=== PATIENT | male | born 2000 | race Caucasian/White ===

== ENCOUNTER 2024-04-12 09:44 | Emergency (ER) | payer MEDICAID, OTHER ==
[~2024-04-12] VITALS: Ht 167.6 cm; Wt 88.7 kg
[2024-04-12] MEDS: ACETAMINOPHEN 500 MG TAB PO ONE (10:49)
[2024-04-12 18:24] VITALS: BP 117/60; TEMP 97.9; O2SAT 99
== END 2024-04-12 18:44 | disposition home or self-care (01) ==
LOC: M ED 09:44
DX: S06.0XAA Concussion with loss of consciousness status unknown, initial encounter (principal); V49.40XA Driver injured in collision with unspecified motor vehicles in traffic accident, initial encounter; Y92.9 Unspecified place or not applicable; Y93.9 Activity, unspecified; Y99.9 Unspecified external cause status; Z91.89 Other specified personal risk factors, not elsewhere classified

== ENCOUNTER 2025-01-18 08:31 | Emergency (ER) | payer OTHER ==
[~2025-01-18] VITALS: Ht 167.6 cm; Wt 95.2 kg
[2025-01-18 08:35] VITALS: BP 148/67; TEMP 98; O2SAT 99
== END 2025-01-18 12:11 | disposition home or self-care (01) ==
LOC: M ED 08:31
DX: S89.91XA Unspecified injury of right lower leg, initial encounter (principal); X58.XXXA Exposure to other specified factors, initial encounter; Y93.66 Activity, soccer; Y92.89 Other specified places as the place of occurrence of the external cause; Y99.9 Unspecified external cause status

== ENCOUNTER → 2025-01-25 | Outpatient (CLI) | payer OTHER | LOC: M PLAIMG 06:34 | PROVIDERS: ATTEND Neuromusculoskeletal Medicine, Sports Medicine | DX: S80.01XA Contusion of right knee, initial encounter (principal); S83.8X1A Sprain of other specified parts of right knee, initial encounter; S83.004A Unspecified dislocation of right patella, initial encounter ==